=== PATIENT | female | born 1990 | race Caucasian/White ===

== ENCOUNTER 2018-06-16 08:10 | Outpatient (CLI) | payer OTHER ==
--- NOTE | 2018-06-16 13:43 | NM ---
NUCLEAR MEDICINE HIDA SCAN WITH EJECTION FRACTION: Date: 06/16/18 HISTORY: Epigastric pain. COMPARISON: None. TECHNIQUE: The patient was administered 4.9 mCi of technetium-99m mebrofenin intravenously. Gallbladder ejection fraction was determined after the patient was administered 8 oz of Ensure orally. FINDINGS: There is appropriate uptake of the radiotracer by the hepatic parenchyma. There is localization of ra diotracer in the gallbladder. There is passage of radiotracer from the common bile duct into small bernarda wel loops. Gallbladder ejection fraction is 60%. IMPRESSION: 1. No scintigraphic evidence of acute cholecystitis. 2. 60% gallbladder ejection fraction. POS: CET
== END 2018-06-16 08:11 | disposition home or self-care (01) ==
LOC: NM 08:10
PROVIDERS: ATTEND Internal Medicine Gastroenterology
DX: R10.13 Epigastric pain (principal)
CPT/HCPCS: 78227; A9537